=== PATIENT | male | born 1955 | race Caucasian/White ===

== ENCOUNTER 2016-07-15 09:53 | Emergency (ER) | payer BC ==
[2016-07-15] MEDS ORDERED: NITROGLYCERIN 0.4MG SL TABLET #25 BTL SL PRN (10:13)
[2016-07-15] MEDS ORDERED: ASPIRIN 81 MG CHEWABLE TABLET PO ONE (10:13)
--- NOTE | 2016-07-15 10:19 | Emergency Department Record ---
History of Present Illness - General Chief Complaint: Chest Pain Stated Complaint: CHEST PAIN Source: Patient Mode of Arrival: Ambulatory Limitations: No limitations - History of Present Illness Initial Comments: pt awakened w cp at 2am that is sharp and unlike anything he has ever had. it has been constant since then. pt stopped smoking 6yrs ago. he has hi chol, htn and strong family hx [mother, father, brother] of heart disease. pt has never had a cardiac evaluation. he has had fempop bypass and stents in his legs. MD Complaint: Chest pain Onset/Timin -: Hour(s) Onset: Awoke with symptoms Pain Location: Substernal Pain Radiation: LUE Severity: Moderate Severity scale (1-10): 6 Quality: Sharp Consistency: Constant Improves With: Nothing Worsens With: Inspiration Anginal Symptoms: Diaphoresis, Dyspnea, Nausea Treatments Prior to Arrival: Aspirin (81mg) - Related Data Home Medications Medication Instructions Recorded Confirmed Last Taken Albuterol Sulfate [Proair Hfa] 1 inh PO ASDIR 07/15/16 07/15/16 Unknown Aspirin [Adult Low Dose Aspirin EC] 81 mg PO DAILY 07/15/16 07/15/16 07/15/16 Carvedilol [Carvedilol] 25 mg PO DAILY 07/15/16 07/15/16 07/15/16 Cholecalciferol (Vitamin D3) 2,000 unit PO DAILY 07/15/16 07/15/16 07/15/16 [Vitamin D3] Cyanocobalamin (Vitamin B-12) 1,000 mcg PO DAILY 07/15/16 07/15/16 07/15/16 [Vitamin B-12] Folic Acid [Folic Acid] 1 mg PO DAILY 07/15/16 07/15/16 07/15/16 Losartan Potassium [Losartan 50 mg PO DAILY 07/15/16 07/15/16 07/15/16 Potassium] Magnesium Oxide [Magnesium] 400 mg PO DAILY 07/15/16 07/15/16 07/15/16 Nifedipine [Nifedipine ER] 60 mg PO DAILY 07/15/16 07/15/16 07/15/16 Nitroglycerin 0.4MG [Nitrostat 1 tab SL ASDIR 07/15/16 07/15/16 Unknown 0.4MG] Pravastatin Sodium [Pravachol] 40 mg PO DAILY 06/11/2107/15/16 07/15/16 Pyridoxine HCl (Vitamin B6) 100 mg PO DAILY 07/15/16 07/15/16 07/15/16 [Vitamin B-6] Warfarin Sodium [Coumadin] 5 mg PO ASDIR 07/15/16 07/15/16 07/15/16 Allergies Allergy/AdvReac Type Severity Reaction Status Date / Time No Known Drug Allergies Allergy Verified 07/15/16 10:06 Review of Systems Reviewed: No additional complaints except as noted below Constitutional: Reports: As per HPI. Denies: Chills, Fever, Malaise, Night sweats, Weakness, Weight change Eyes: Reports: As per HPI. Denies: Eye discharge, Eye pain, Photophobia, Vision change ENT: Reports: As per HPI. Denies: Congestion, Dental pain, Ear pain, Epistaxis , Hearing loss, Throat pain Respiratory: Reports: As per HPI. Denies: Cough, Dyspnea, Hemoptysis, Stridor, Wheezes Cardiovascular: Reports: As per HPI. Denies: Arrhythmia, Chest pain, Dyspnea on exertion, Edema, Murmurs, Orthopnea, Palpitations, Paroxysmal nocturnal dyspnea, Rheumatic Fever, Syncope Endocrine: Reports: As per HPI. Denies: Fatigue, Heat or cold intolerance, Polydipsia, Polyuria Gastrointestinal: Reports: As per HPI. Denies: Abdominal pain, Constipation, Diarrhea, Hematemesis, Hematochezia, Melena, Nausea, Vomiting Genitourinary: Reports: As per HPI. Denies: Dysuria, Frequency, Hematuria, Incontinence, Retention, Testicular pain, Testicular mass, Urgency Musculoskeletal: Reports: As per HPI. Denies: Arthralgia, Back pain, Gout, Joint swelling, Myalgia, Neck pain Skin: Reports: As per HPI. Denies: Bruising, Change in color, Change in hair/ nails, Lesions, Pruritus, Rash Neurological: Reports: As per HPI. Denies: Abnormal gait, Confusion, Headache, Numbness, Paresthesias, Seizure, Tingling, Tremors, Vertigo, Weakness Psychiatric: Reports: As per HPI. Denies: Anxiety, Auditory hallucinations, Depression, Homicidal thoughts, Suicidal thoughts, Visual hallucinations Hematological/Lymphatic: Reports: As per HPI. Denies: Anemia, Blood Clots, Easy bleeding, Easy bruising, Swollen glands Past Medical History - SOCIAL HISTORY Smoking Status: Former smoker Family Medical History Any Significant Family History?: Yes Hx Heart Disease: Father, Mother, Brother/Sister Physical Exam - General General Appearance: Alert, Oriented x3, Cooperative, Mild distress - Head Head exam: Normal inspection - Eye Eye exam: Normal appearance, PERRL, EOMI Pupils: Normal accommodation - ENT ENT exam: Normal exam, Mucous membranes moist, Normal external ear exam, Normal orophraynx Ear exam: Normal external inspection. negative: External canal tenderness Nasal Exam: Normal inspection. negative: Discharge, Sinus tenderness Mouth exam: Normal external inspection, Tongue normal Teeth exam: Normal inspection. negative: Dental caries Throat exam: Normal inspection. negative: Tonsillar erythema, Tonsillar exudate - Neck Neck exam: Normal inspection, Full ROM. negative: Tenderness - Respiratory Respiratory exam: Normal lung sounds bilaterally. negative: Respiratory distress - Cardiovascular Cardiovascular Exam: Regular rate, Normal rhythm, Normal heart sounds - GI/Abdominal GI/Abdominal exam: Soft, Normal bowel sounds. negative: Tenderness - Rectal Rectal exam: Deferred - exam: Deferred - Extremities Extremities exam: Normal inspection, Full ROM, Normal capillary refill. negative: Tenderness - Back Back exam: Reports: Normal inspection, Full ROM. Denies: Muscle spasm, Rash noted, Tenderness - Neurological Neurological exam: Alert, CN II-XII intact, Normal gait, Oriented X3 - Psychiatric Psychiatric exam: Normal affect, Normal mood - Skin Skin exam: Dry, Intact, Normal color, Warm Course Vital Signs 07/15/16 10:00 Temperature 99.1 F Pulse Rate [ 69 Pulse Ox Probe] Respiratory 14 Rate Blood Pressure 167/82 [Left Arm] Pulse Ox 94 L - Reevaluation(s) Reevaluation #1: 07/15/16 11:03 pts pain got better with ntg however 2nd ntg bottomed pts pressure out Reevaluation #2: 07/15/16 13:12 d/w dr rapp who accepted pt and requested heparin. 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
[2016-07-15 10:37] LABS: BASO % 0.1 % (0-6); EOS % 0.4 % (0-6); HEMATOCRIT 40.6 % (42.0-52.0); LYMPH % 7.3 % (16-45); MEAN CELL VOLUME 98.5 fl (81-97); MEAN CORPUSCULAR HGB CONC 34.5 g/dl (32-36); MONO % 6.7 % (0-9); PLATELET COUNT 226 K/uL (130-400); RED BLOOD COUNT 4.12 M/uL (4.40-5.70); RED CELL DISTRIBUTION WIDTH 12.8 % (11.5-14.5); WHITE BLOOD COUNT W/O DIFF 10.9 K/uL (4.2-12.2)
[2016-07-15 10:38] LABS: MEAN CORPUSCULAR HEMOGLOBIN 33.9 pg (27-33)
[2016-07-15 10:47] LABS: ANION GAP 7.2 (7-16); BLOOD UREA NITROGEN 11 mg/dL (9-20); CARBON DIOXIDE 27.8 mmol/L (22-30); CREATINE PHOSPHOKINASE 249 U/L (55-170); CREATININE 0.8 mg/dL (0.66-1.25); EST GLOMERULAR FILTRATION RATE > 60 ml/min; GLUCOSE,RANDOM 116 mg/dL (70-110)
[2016-07-15 11:00] LABS: PLATELET ESTIMATE NORMAL (NORMAL)
[2016-07-15 11:01] LABS: TROPONIN I < 0.012 ng/mL (0.00-0.034)
[2016-07-15] MEDS ORDERED: HEPARIN SODIUM 1000 UNIT/1 ML 10ML VIAL IVP ONE (13:10)
[2016-07-15] MEDS ORDERED: HEPARIN SODIUM/D5W 25,000 UNITS/500 ML BAG IV SCH (13:15)
--- NOTE | 2016-07-17 10:00 | RADIOLOGY REPORT ---
EXAM: CHEST, TWO VIEWS HISTORY: LEFT SIDED CHEST PAIN AND LEFT ARM NUMBNESS SINCE 2:00 A.M. THIS MORNING. TECHNIQUE: PA and lateral upright views of the chest were obtained. Comparison: None. FINDINGS: The heart, mediastinum, and pulmonary vasculature are normal. There are no acute infiltrates or effusions. There is no pneumothorax. The bones appear intact. Small nodular densities at the left lung bases laterally have the appearance of calcified granulomas. IMPRESSION: 1. NO ACUTE CHEST PATHOLOGY. 2. PROBABLE CALCIFIED GRANULOMAS AT THE LEFT LUNG BASE. JOB NUMBER: [id number] [facility]
== END 2016-07-15 14:10 | disposition short-term general hospital (02) ==
LOC: ER 09:53
DX: I20.9 Angina pectoris, unspecified (principal); R61 Generalized hyperhidrosis; R06.00 Dyspnea, unspecified; R11.0 Nausea; I10 Essential (primary) hypertension; Z87.891 Personal history of nicotine dependence
CPT/HCPCS: 71020; 80048; 82550; 82553; 83874; 83880; 84484; 85027; 85379; 93005; 93010; 96365; 96375; 99285

== ENCOUNTER 2018-06-06 23:00 | Emergency (ER) | payer BC ==
--- NOTE | 2018-06-06 23:15 | Emergency Department Record ---
History of Present Illness - General Chief Complaint: Fall Injury Stated Complaint: FELL, HEAD INJURY Time Seen by Provider: 06/06/18 23:01 Source: Patient, Family Mode of Arrival: Ambulatory Limitations: No limitations - History of Present Illness Initial Comments: 62 yo male presents after a trip and fall in his garage. He hit his forehead on the arm of a chair. He has a laceration to the forehead. No LOC. No other pains or injuries. He is on Coumadin for severe peripheral arterial disease with 18 stents in his leg. Dr Cardenas is his doctor for PAD. No headache, dizziness, confusion, vomiting. He is retired. He has COPD as well. No recent changes from his baseline. MD Complaint: Fall Onset/Timin -: Minutes(s) Fall From: Standing When Fall Occurred: Just prior to arrival Fall Witnessed: No Place Fall Occurred: Home Loss of Consciousness: None Prolonged Down Time?: No Symptoms Prior to Fall: None Location: Face Severity: Moderate Quality: Other (No significant pain) Associated Symptoms: Denies - [place] Coma Scale Eye Response: (4) Open spontaneously Motor Response: (6) Obeys commands Verbal Response: (5) Oriented [place] Total: 15 - Related Data Home Medications Medication Instructions Recorded Confirmed Last Taken Hydrochlorothiazide [Hctz] 25 mg PO DAILY 06/07/18 06/07/18 Unknown Hydrocodone/APAP 5/325Mg [[place] 1 each PO Q4H PRN 06/07/18 06/07/18 Unknown 5Mg/325Mg] Loratadine 10 mg PO DAILY 06/07/18 06/07/18 Unknown Allergies Allergy/AdvReac Type Severity Reaction Status Date / Time No Known Drug Allergies Allergy Verified 06/06/18 23:03 Travel Screening - Travel/Exposure Within Last 30 Days Have you traveled within the last 30 days?: No - Travel Symptoms Symptom Screening: None Review of Systems Constitutional: Denies: Chills, Fever, Malaise, Weakness Eyes: Denies: Eye discharge ENT: Denies: Congestion, Throat pain Respiratory: Reports: Cough (chronic COPD). Denies: Dyspnea, Hemoptysis, Stridor, Wheezes Cardiovascular: Denies: Chest pain, Palpitations, Syncope Endocrine: Denies: Fatigue Gastrointestinal: Denies: Abdominal pain, Diarrhea, Nausea, Vomiting Genitourinary: Denies: Dysuria, Frequency, Hematuria Musculoskeletal: Denies: Arthralgia, Back pain, Myalgia Skin: Reports: Other (Laceration). Denies: Bruising, Change in color Neurological: Denies: Abnormal gait, Confusion, Headache, Numbness, Tingling, Tremors, Vertigo, Weakness Psychiatric: Denies: Anxiety Hematological/Lymphatic: Reports: Easy bleeding, Easy bruising Past Medical History - SOCIAL HISTORY Smoking Status: Former smoker - RESPIRATORY Hx Respiratory Disorders: Yes Hx Asthma: Yes Hx COPD: Yes - CARDIOVASCULAR Hx Cardio Disorders: Yes Hx CHF: Yes Hx Hypertension: Yes Hx Vascular Disease: Yes (PVD) Comment:: CAD, high cholesterol - NEURO Hx Neuro Disorders: No - GI Hx GI Disorders: No - Hx Genitourinary Disorders: No - ENDOCRINE Hx Endocrine Disorders: No - MUSCULOSKELETAL Hx Musculoskeletal Disorders: Yes Hx Arthritis: Yes - PSYCH Hx Psych Problems: No - HEMATOLOGY/ONCOLOGY Hx Hematology/Oncology Disorders: No Family Medical History Any Significant Family History?: Yes Hx Heart Disease: Father, Mother, Brother/Sister Physical Exam - General General Appearance: Alert, Oriented x3, Cooperative, No acute distress Limitations: No limitations - Head Head exam: Normocephalic. negative: Atraumatic, Normal inspection Head exam detail: Laceration (2cm right eyebrow laceration) Image of Face/Head: 1 - 2.5cm laceration of the right eyebrow, local tenderness and bruising with STS - Eye Eye exam: PERRL, EOMI. negative: Conjunctival injection - ENT ENT exam: Normal exam, Mucous membranes moist. negative: Mucous membranes dry Ear exam: Normal external inspection Nasal Exam: Normal inspection Mouth exam: Normal external inspection Teeth exam: Normal inspection Throat exam: Normal inspection - Neck Neck exam: Normal inspection, Full ROM. negative: Tenderness - Respiratory Respiratory exam: Decreased breath sounds, Wheezes. negative: Chest wall tenderness, Respiratory distress - Cardiovascular Cardiovascular Exam: Regular rate, Normal rhythm, Normal heart sounds - GI/Abdominal GI/Abdominal exam: Soft. negative: Distended, Guarding, Rebound, Rigid, Tenderness - Rectal Rectal exam: Deferred - exam: Deferred - Extremities Extremities exam: Normal inspection. negative: Calf tenderness, Full ROM, Pedal edema, Tenderness - Back Back exam: Reports: Full ROM. Denies: CVA tenderness (R), CVA tenderness (L), Paraspinal tenderness, Tenderness, Vertebral tenderness - Neurological Neurological exam: Alert, CN II-XII intact, Oriented X3 - Psychiatric Psychiatric exam: Normal affect, Normal mood - Skin Type of lesion: Laceration Course - Reevaluation(s) Reevaluation #1: Given he is on Coumadin the patient Trauma Alert was activated 06/06/18 23:16 06/06/18 23:37 Procedure: 2.5 cm laceration of the forehead/eyebrow Wound was cleaned and prepped in sterile fashion, no residual FB identified on examination. The wound was copiously irrigated with NS Wound was anesthetized with 3 mL of 1% Lidocaine with epinephrine The laceration was repaired with Ethilon 4-0 sutures in interrupted fashion. Patient tolerated the procedure well without complications. We discussed home care, reasons for immediate return if any concerns, and suture removal in 8 days 06/07/18 00:02 The labs were reviewed The CBC is unremarkable The CMP is unremarkable The INR is 5.4 Alcohol is 0.293 The patient is in CT 06/07/18 00:03 06/07/18 00:39 The HCT is negative for acute intracranial injury The Cervical CT is negative for acute injury Given his head injury with an INR of 5.4 the case will be discussed with Trauma at [facility] 06/07/18 00:43 06/07/18 00:53 I JAD Burger of Trauma. We discussed the injury with normal HCT but elevated INR of 5.4. He recommends reversing with Kcentra and transfer ER to ER. The patient and his was informed of the recommendation for reversal with Kcentra and transfer to a trauma center given the elevated INR. We discussed risks of not reversing including bleeding that could be life threatening vs giving with concerns about his PAD. He and his understand there can be risks but agree with the Trauma recommendation of given the Kcentra. Dr Mcmanus accepts the patient in the ED Telepharmacy was consulted for dosing for the Kcentra. The recommended dose is 3500 units of Kcentra for 109 kg with INR of 5.4 06/07/18 01:02 Stable at the time of transfer 06/07/18 01:49 Tetanus was updated prior to DC Medical Decision Making - Lab Data Result diagrams: 06/06/18 22:50 06/06/18 22:50 Disposition Disposition: Transfer Clinical Impression: Supratherapeutic INR Eyebrow laceration Qualifiers: Encounter type: initial encounter Laterality: right Qualified Code(s): S01.111A - Laceration without foreign body of right eyelid and periocular area, initial encounter Alcohol intoxication Qualifiers: Complication of substance-induced condition: uncomplicated Qualified Code(s): F10.920 - Alcohol use, unspecified with intoxication, uncomplicated Transfer To: [facility] Reason For Transfer: Head injury with eleveate INR Accepting Physician: Tao Time Discussed w/Accepting Physician: 00:55 Condition: (2) Stable Forms: Patient Portal Access Time of Disposition: 00:55 Quality - Quality Measures Quality Measures: N/A - Blood Pressure Screening Does Patient Have Any of the Following: No Blood Pressure Classification: Pre-Hypertensive BP Reading Systolic Measurement: 126 Diastolic Measurement: 75 Screening for High Blood Pressure: < Pre-Hypertensive BP, F/U Documented > [ [id number]] Pre-Hypertensive Follow-up Interventions: Referral to alternative/primary care provider.
[2018-06-06 23:24] LABS: BASO % 0.4 % (0-6); EOS % 2.9 % (0-6); GRAN % 50.3 % (47-80); HEMATOCRIT 39.1 % (42.0-52.0); HEMOGLOBIN 13.6 gm/dl (14.0-18.0); LYMPH % 36.7 % (16-45); MEAN CELL VOLUME 99.7 fl (81-97); MEAN CORPUSCULAR HGB CONC 34.8 g/dl (32-36); MEAN PLATELET VOLUME 8.9 fl (7.4-10.4); MONO % 9.7 % (0-9); PLATELET COUNT 215 K/uL (130-400); RED BLOOD COUNT 3.92 M/uL (4.40-5.70); RED CELL DISTRIBUTION WIDTH 13.2 % (11.5-14.5); WHITE BLOOD COUNT W/O DIFF 8.2 K/uL (4.2-12.2)
[2018-06-06 23:25] LABS: MEAN CORPUSCULAR HEMOGLOBIN 34.6 pg (27-33)
[2018-06-06 23:41] LABS: BLOOD UREA NITROGEN 8 mg/dL (8-23); CREATININE 0.7 mg/dL (0.7-1.2); EST GLOMERULAR FILTRATION RATE > 60 mL/min; TOTAL PROTEIN 7.1 g/dL (6.6-8.7)
[2018-06-06 23:42] LABS: ALCOHOL 0.293 g/dL (0-0.010); PARTIAL THROMBOPLASTIN TIME 60.9 SECONDS (24.5-39.1)
[2018-06-06 23:43] LABS: GLUCOSE,RANDOM 110 mg/dL (74-109); INR 5.4; PROTHROMBIN TIME (PATIENT) 52.1 SECONDS (9.5-12.1)
[2018-06-06 23:46] LABS: ALB/GLOB RATIO 1.6 (1.1-1.8); ALBUMIN 4.4 g/dL (4.0-5.0); ALKALINE PHOSPHATASE 71 U/L (40-129); ALT/SGPT 35 U/L (<41); AST/SGOT 39 U/L (10.0-50.0)
[2018-06-07] MEDS ORDERED: HUMAN PROTHROMBIN COMPLX IV ONE ×2 (00:58)
[2018-06-07] MEDS ORDERED: [UNRECOGNIZED DRUG - OTHER] IV ONE ×2 (00:58)
[2018-06-07] MEDS ORDERED: KCENTRA (PCC) 1,000 UNIT KIT IV ONE (00:58)
[2018-06-07] MEDS ORDERED: Diph,Pert(Acell),Tet Vac 0.5 ML SYR IM ONE (01:02)
--- NOTE | 2018-06-09 12:39 | CT SCAN REPORT ---
DATE: 06/06/2018 at 2356. EXAM: CT OF THE BRAIN WITHOUT CONTRAST. HISTORY: FALL WITH HEAD TRAUMA. LACERATION TO RIGHT SIDE OF THE SCALP, UPPER EYELID, AND NOSE. TECHNIQUE: Routine noncontrast CT examination of the brain. COMPARISON: No prior imaging of the brain available for comparison. Same-day CT of the cervical spine without contrast. FINDINGS: There is prominent extra-axial fluid in the posterior aspect of the posterior fossa centered in the midline consistent with a normal-variant prominent cisterna magna versus arachnoid cyst. The subarachnoid spaces and ventricles are otherwise normal in appearance. No definite area of abnormally increased or decreased attenuation is noted throughout the brain substance. No abnormal extra-axial fluid collection is seen. No skull fracture is identified. There is soft tissue swelling and subcutaneous emphysema within the superomedial right periorbital region consistent with contusion and laceration. Soft tissue swelling extends to the upper nasal region asymmetric to the right. There is mucosal thickening in multiple bilateral ethmoid air cells and the inferior aspect of the right frontal sinus. IMPRESSION: 1. NO CONVINCING CT EVIDENCE OF AN ACUTE INTRACRANIAL ABNORMALITY NOR SKULL FRACTURE. 2. PROMINENT EXTRA-AXIAL FLUID IN THE POSTERIOR ASPECT OF THE POSTERIOR FOSSA LIKELY A DEVELOPMENT PROMINENT CISTERNA MAGNA WITH ARACHNOID CYST LESS LIKELY. 3. SOFT TISSUE SWELLING IN THE SUPEROMEDIAL RIGHT PERIORBITAL REGION CONSISTENT WITH HEMATOMA AND LACERATION. SOFT TISSUE SWELLING EXTENDS TO THE UPPER NASAL REGION. 4. MILD, CHRONIC INFLAMMATORY CHANGES OF SEVERAL PARANASAL SINUSES. Job Number: [id number] [facility]TD[facility]
--- NOTE | 2018-06-09 14:03 | CT SCAN REPORT ---
DATE: 06/07/2018 at 0002. EXAM: CT OF THE CERVICAL SPINE WITHOUT CONTRAST. HISTORY: FALL WITH TRAUMA TO RIGHT PERIORBITAL REGION. TECHNIQUE: Thin-collimation helical CT examination of the cervical spine is performed in the axial plane without intravenous contrast. Coronal and sagittal reformatted images are generated and reviewed. COMPARISON: No prior imaging of the cervical spine available for comparison. Same-day noncontrast CT of the head. FINDINGS: The patient's head is tilted rightward in the gantry associated with minor levoconvex curvature of the upper cervical spine. There is straightening of the normal cervical lordosis. The vertebral bodies are otherwise normal in alignment and height. No acute fracture, destructive bone lesion, nor prevertebral soft tissue swelling. Mild to moderate hypertrophic degenerative changes of the atlantodental joint are present. Multilevel degenerative disc/degenerative endplate changes are present, most pronounced at the C4-C5 through C6-C7 levels where they are moderate in degree. These changes combined with congenital canal narrowing appear to cause mild central canal stenosis at the C4-C5, C5-C6, and C6-C7 levels. There is borderline central canal stenosis at the C3-C4 level. Multilevel bilateral facet arthropathy is present, most pronounced on the right at the C3-C4 level where the changes are moderate in degree. Multilevel bilateral neural foraminal narrowing is present due to uncovertebral joint and facet joint spurring. These are most pronounced at the C6-C7 level where it is moderate to severe, right greater than left. Mild bi-apical lung scarring is suggested. No suspicious mass nor adenopathy in the neck. Moderate atherosclerotic calcification of the carotid bifurcations. There is mild mucosal thickening in the floor of the right maxillary sinus. IMPRESSION: 1. NO ACUTE FRACTURE, SUBLUXATION, OR PREVERTEBRAL SOFT TISSUE SWELLING. 2. MULTILEVEL DEGENERATIVE CHANGES ASSOCIATED WITH STRAIGHTENING OF THE NORMAL CERVICAL LORDOSIS. THE PATIENT'S HEAD IS TILTED RIGHTWARD IN THE GANTRY ASSOCIATED WITH MILD LEVOCURVATURE OF THE UPPER CERVICAL SPINE. Job Number: [id number] [facility]TD[facility]
== END 2018-06-07 01:35 | disposition short-term general hospital (02) ==
LOC: ER 23:00
DX: S01.111A Laceration without foreign body of right eyelid and periocular area, initial encounter (principal); S09.90XA Unspecified injury of head, initial encounter; R79.1 Abnormal coagulation profile; F10.920 Alcohol use, unspecified with intoxication, uncomplicated; W01.190A Fall on same level from slipping, tripping and stumbling with subsequent striking against furniture, initial encounter; Y92.008 Other place in unspecified non-institutional (private) residence as the place of occurrence of the external cause; I50.9 Heart failure, unspecified; I10 Essential (primary) hypertension; J44.9 Chronic obstructive pulmonary disease, unspecified; I73.9 Peripheral vascular disease, unspecified; Z87.891 Personal history of nicotine dependence; Z79.01 Long term (current) use of anticoagulants
CPT/HCPCS: 12011 ×2; 99285 ×2; 96372; 96365; 85025; 85730; 85610; 80053; 72125; 70450; G0480; C9132 ×2; 80320; 90715